=== PATIENT | female | born 1975 | race African-American/Black ===

== ENCOUNTER 2020-02-22 10:02 | Observation (INO) | payer MEDICAID ==
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
[2020-02-22 10:55] LABS: ABSOLUTE EOSINOPHILS # (AUTO) 0.1 10^3/uL (0.0-0.6); ABSOLUTE LYMPHOCYTES (AUTO) 2.1 10^3/uL (0.5-4.7); ABSOLUTE MONOCYTES (AUTO) 0.5 10^3/uL (0.1-1.4); ABSOLUTE NEUT (AUTO) 2.6 10^3/uL (1.7-8.2); BASOPHILS % (AUTO) 0.8 % (0-2); EOSINOPHILS % (AUTO) 2.1 % (0-6); HEMATOCRIT 44.5 % (36.0-47.0); HEMOGLOBIN 15.5 g/dL (12.0-15.5); MEAN CORPUSCULAR HEMOGLOBIN 31.4 pg (27.0-33.4); MEAN CORPUSCULAR HGB CONC 34.9 g/dL (32.0-36.0); MEAN CORPUSCULAR VOLUME 90 fl (80-97); MONOCYTES % (AUTO) 9.1 % (3-13); PLATELET COUNT 295 10^3/uL (150-450); RED BLOOD COUNT 4.94 10^6/uL (3.72-5.28); RED CELL DISTRIBUTION WIDTH 13.7 % (11.5-14.0); TOTAL CELLS COUNTED % (AUTO) 100 %; WHITE BLOOD COUNT 5.4 10^3/uL (4.0-10.5)
--- NOTE | 2020-02-22 10:56 | RADIOLOGY REPORT (SQ) ---
EXAM DESCRIPTION: CHEST SINGLE VIEW IMAGES COMPLETED DATE/TIME: 02/22/2020 9:17 am REASON FOR STUDY: bed 20 chest pain COMPARISON: None. EXAM PARAMETERS: NUMBER OF VIEWS: One view. TECHNIQUE: Single frontal radiographic view of the chest acquired. RADIATION DOSE: NA LIMITATIONS: None. FINDINGS: LUNGS AND PLEURA: No opacities, masses or pneumothorax. No pleural effusion. MEDIASTINUM AND HILAR STRUCTURES: No masses. Contour normal. HEART AND VASCULAR STRUCTURES: Heart normal in size. Normal vasculature. BONES: No acute findings. HARDWARE: None in the chest. OTHER: No other significant finding. IMPRESSION: NO ACUTE RADIOGRAPHIC FINDING IN THE CHEST. TECHNICAL DOCUMENTATION: JOB ID: [id number] 2010 [employer]- All Rights Reserved Reading location - IP/workstation name: [email or web address]
[2020-02-22 11:12] LABS: ALKALINE PHOSPHATASE 94 U/L (38-126); ANION GAP 6 (5-19); ASPARTATE AMINO TRANSFERASE 17 U/L (14-36); BILIRUBIN,TOTAL 0.7 mg/dL (0.2-1.3); BLOOD UREA NITROGEN 11 mg/dL (7-20); CALCIUM 10.5 mg/dL (8.4-10.2); CARBON DIOXIDE 28 mmol/L (22-30); CHLORIDE 102 mmol/L (98-107); CREATINE KINASE 43 U/L (30-135); GLUCOSE 103 mg/dL (75-110); TOTAL PROTEIN 7.1 g/dL (6.3-8.2)
[2020-02-22 11:22] LABS: CREATINE KINASE MB 0.64 ng/mL (<4.55)
[2020-02-22 11:25] LABS: TROPONIN I < 0.012 ng/mL
[2020-02-22] MEDS ORDERED: ZOLPIDEM TARTRATE 5 MG TABLET PO PRN (16:48)
[2020-02-22] MEDS ORDERED: ACETAMINOPHEN 325 MG TABLET PO PRN (16:48)
[2020-02-22] MEDS ORDERED: OXYCODONE HCL IR 5 MG TABLET PO PRN (16:48)
[2020-02-22] MEDS ORDERED: PROMETHAZINE HCL INJ 25 MG/1 ML VIAL IV PRN (16:48)
[2020-02-22] MEDS ORDERED: ALPRAZOLAM 0.5 MG TABLET PO PRN (16:48)
[2020-02-22] MEDS ORDERED: MAG HYDROX/AL HYDROX/SIMETH SUSP 30 ML UDCUP PO PRN (16:48)
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
[2020-02-22] MEDS ORDERED: PAROXETINE HCL 20 MG TABLET PO ONE (17:30)
[2020-02-22] MEDS ORDERED: NORMAL SALINE 1000 ML 1,000 ML IV PRN (17:50)
[2020-02-22] MEDS ORDERED: NITROGLYCERIN 0.4 MG/TAB 25 TAB/BOTTLE SL PRN (18:04)
--- NOTE | 2020-02-22 19:45 | EKG REPORT ---
SEVERITY:- ABNORMAL ECG - ATRIAL FIBRILLATION, V-RATE 81-99 : Confirmed by: Len Ham MD 22-Feb-2020 19:44:49
--- NOTE | 2020-02-22 19:46 | EKG REPORT ---
SEVERITY:- ABNORMAL ECG - ATRIAL FIBRILLATION, V-RATE 76-96 : Confirmed by: Len Ham MD 22-Feb-2020 19:45:15
[2020-02-22] MEDS: FAMOTIDINE 20 MG TABLET PO SCH (21:29)
[2020-02-22] MEDS: METOPROLOL SUCCINATE 25 MG TAB.SR.24H PO SCH (21:30)
[2020-02-23 07:39] LABS: CHOLESTEROL 135.56 mg/dL (0-200); TRIGLYCERIDES 157 mg/dL (<150)
[2020-02-23 07:54] LABS: DIRECT LDL 63 mg/dL (<100)
[2020-02-23 07:58] LABS: VLDL CHOLESTEROL 31.4 mg/dL (10-31)
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
[2020-02-23] MEDS ORDERED: POTASSIUM CHLORIDE 10 MEQ TABLET.ER PO SCH (10:00)
[2020-02-23] MEDS ORDERED: PAROXETINE HCL 20 MG TABLET PO SCH (10:00)
[2020-02-23] MEDS ORDERED: ENOXAPARIN SODIUM INJ 40 MG/0.4 ML DISP.SYRIN SUBCUT SCH (10:00)
[2020-02-23] MEDS: FAMOTIDINE 20 MG TABLET PO SCH (10:23)
[2020-02-23] MEDS: METOPROLOL SUCCINATE 25 MG TAB.SR.24H PO SCH (10:23)
[2020-02-23 12:35] VITALS: BP 114/61
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
--- NOTE | 2020-02-23 17:53 | XCELERA REPORT ---
[address] [address] Transthoracic Echocardiogram Report Name: JIN ESPINOSA Age: 44 yrs Gender: Female : 1975 Patient Status: Inpatient Patient Location: [address] [place] [address] Study Date: 02/23/2020 11:09 AM Height: 68 in Weight: 244 lb BSA: 2.2 m2 Procedure: A complete two-dimensional transthoracic echocardiogram was performed (2D, M-mode, spectral and color flow Doppler). Study Quality: Fair. Reason For Study: Chest pain Ordering Physician: RAE SAAVEDRA Performed By: Cinthya Mitchell Interpretation Summary The left ventricle is grossly normal size. Left ventricular systolic function is normal. The Ejection Fraction estimate is 55-60%. Doppler measurements suggest normal left ventricular diastolic function. No regional wall motion abnormalities noted. Trace MR, trace TR. No prior studies for comparison. MMode/2D Measurements & Calculations RVDd: 2.5 cm LVIDd: 4.5 cm FS: 31.5 % Ao root diam: 3.4 cm IVSd: 1.2 cm LVIDs: 3.1 cm EDV(Teich): 93.3 ml Ao root area: 9.2 cm2 LVPWd: 1.0 cm ESV(Teich): 37.8 ml EF(Teich): 59.5 % Doppler Measurements & Calculations MV E max mounika: MV dec slope: Ao V2 max: LV V1 max P.9 cm/sec 427.6 cm/sec2 111.5 cm/sec 3.3 mmHg MV A max mounika: MV dec time: 0.23 secAo max PG: LV V1 max: 71.0 cm/sec 5.0 mmHg 90.3 cm/sec MV E/A: 0.77 PA V2 max: 70.8 cm/sec PA max P.0 mmHg Left Ventricle The left ventricle is grossly normal size. Left ventricular systolic function is normal. The Ejection Fraction estimate is 55-60%. Doppler measurements suggest normal left ventricular diastolic function. No regional wall motion abnormalities noted. Right Ventricle The right ventricle is normal in size, thickness and function. The right ventricular systolic function is normal. Atria The right atrium is normal. The left atrial size is normal. The interatrial septum is difficult to see, but appears to be grossly normal. Mitral Valve The mitral valve is normal in structure and function. There is a trace amount of mitral regurgitation. Aortic Valve The aortic valve is normal in structure and functions normally. There is no aortic valve stenosis. No aortic regurgitation is present. Tricuspid Valve The tricuspid is normal in structure and function. There is no tricuspid stenosis. There is a trace or physiologic amount of tricuspid regurgitation. Pulmonic Valve The pulmonic valve is normal in structure and function. There is no pulmonic valvular stenosis. There is no pulmonic valvular regurgitation. Effusions There is no pericardial effusion. There is no pleural effusion. : RAE SAAVEDRA, Rae
[2020-02-24] MEDS ORDERED: METOPROLOL SUCCINATE 50 MG TAB.SR.24H PO SCH (10:00)
== END 2020-02-23 13:47 | disposition home or self-care (01) ==
LOC: ER 10:02 → EH 14:32 → 4N 16:16
PROVIDERS: ADMIT Hospitalist; ATTEND Hospitalist
DX: R07.89 Other chest pain (principal); I48.11 Longstanding persistent atrial fibrillation; I10 Essential (primary) hypertension; F41.8 Other specified anxiety disorders; G89.21 Chronic pain due to trauma; G47.33 Obstructive sleep apnea (adult) (pediatric); R11.2 Nausea with vomiting, unspecified; F17.210 Nicotine dependence, cigarettes, uncomplicated; R14.2 Eructation; R06.02 Shortness of breath; Z79.899 Other long term (current) drug therapy; Z87.81 Personal history of (healed) traumatic fracture; Z90.49 Acquired absence of other specified parts of digestive tract; Z90.710 Acquired absence of both cervix and uterus; Z98.51 Tubal ligation status; Z82.49 Family history of ischemic heart disease and other diseases of the circulatory system; Z87.820 Personal history of traumatic brain injury
CPT/HCPCS: 93005; 99285; 36415 ×2; 82553; 82550; 85025; 80053; 84484; 85379; 80061; 83880; 93306; 71045; 93010; 99406; G0378 ×2; J3490 ×8; J1650; J2550; J7030

== ENCOUNTER 2020-06-05 15:49 | Emergency (ER) | payer MEDICAID ==
[2020-06-05 16:08] VITALS: BP 146/94
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
--- NOTE | 2020-06-05 17:30 | RADIOLOGY REPORT (SQ) ---
EXAM DESCRIPTION: KNEE LEFT 4 VIEW IMAGES COMPLETED DATE/TIME: 06/05/2020 5:11 pm REASON FOR STUDY: knee pain COMPARISON: None. NUMBER OF VIEWS: Four views. TECHNIQUE: AP, lateral, and both oblique radiographic images acquired of the left knee. LIMITATIONS: None. FINDINGS: MINERALIZATION: Normal. BONES: No acute fracture dislocation. No worrisome bone lesions. Tricompartmental degenerative houser ges are present most significantly involving the patellofemoral compartment which demonstrate subcort ical cystic change. JOINT: A joint effusion is present. Incidental note is made of multiple calcified intraarticular bod ies. SOFT TISSUES: No soft tissue swelling. No radio-opaque foreign body. OTHER: No other significant finding. IMPRESSION: Tricompartmental degenerative changes most significantly affecting the patellofemoral co mpartment. Concomitant joint effusion with multiple calcified intraarticular bodies. TECHNICAL DOCUMENTATION: JOB ID: [id number] 2010 [employer]- All Rights Reserved Reading location - IP/workstation name: [email or web address]
== END 2020-06-05 17:59 | disposition home or self-care (01) ==
LOC: ER 15:49
DX: M17.12 Unilateral primary osteoarthritis, left knee (principal); G89.29 Other chronic pain; M25.562 Pain in left knee; I48.91 Unspecified atrial fibrillation; I10 Essential (primary) hypertension
CPT/HCPCS: 99283